=== PATIENT | male | born 1985 | race Two or more races ===

== ENCOUNTER 2025-08-10 20:21 | Emergency (ER) | payer OTHER, SELFPAY ==
[2025-08-10 20:25] VITALS: BMI 29.6
--- NOTE | 2025-08-10 20:57 | XR_ITS ---
Examination: Shoulder, left, 3 views Technique: Shoulder AP internal rotation, AP external rotation, Y view shoulder, 3 views Exam date and time : August 10674 [id number] hours INDICATIONS: Snowboarding injury today with shoulder pain FINDINGS: 14 mm AC joint separation No shoulder fracture or shoulder dislocation IMPRESSION: Prominent AC joint separation
--- NOTE | 2025-08-10 20:57 | XR_ITS ---
Examination: CT cervical spine without contrast 2-D sagittal reconstructions 2-D coronal reconstructions 3-D reconstructions. Exam date and time: August 10, 2025, 2109 hours INDICATION: Patient fell today with injury to the neck, neck pain CTDI:vol (mGy) 15.3 DLP: (mGycm) 380 Technique: Multiple 2 mm axial sections of the cervical spine have been obtained. The coronal and sagittal reconstructions have been obtained. 3-D reconstructions have been obtained. Low dose protocols were performed. One or more of the following dose reduction techniques were used; automated exposure control, adjustment of the mA and/or KV according to patient size, use of iterative reconstruction technique. Findings: Axial sections demonstrate intact base of the skull. C1 exhibit satisfactory relationship to the odontoid. No acute cervical vertebral body fracture seen. Alignment posterior spinous processes satisfactory. Impression: No acute cervical fracture.
--- NOTE | 2025-08-10 20:57 | XR_ITS ---
Examination: CT brain head without contrast. 2-D sagittal coronal reconstructions Date and time of exam: August 10, 2025, 2108 hours INDICATION: Patient fell today with injury to the head, head pain CTDI: vol (mGy): 50.1 DLP: (mGycm): 1017 Technique: Multiple CT axial sections of the brain have been obtained, 5 mm slice thickness. Contrast has not been administered. 2-D sagittal, coronal reconstructions have been obtained Low dose protocols were performed. One or more of the following dose reduction techniques were used; automated exposure control, adjustment of the mA and/or KV according to patient size, use of iterative reconstruction technique. Findings: No significant ventricular enlargement. Intra-axial or extra-axial hemorrhage density is not seen. No mass effect or midline shift Basal cisterns are not remarkable. Fourth ventricle is midline. Cranial vault intact. Impression: Negative for acute hemorrhage, mass effect or midline shift
--- NOTE | 2025-08-10 22:22 | EDNOTE_ITS ---
ED Fall Injury RME/HPI General Chief Complaint: Fall Stated Complaint: FELL,LEFT SHOULDER PAIN, HIT HEAD Time Seen by Provider: 08/10/25 20:56 Arrival date/time: 08/10/25 20:21 This is a case of 39-year-old male with no medical history came in in the emergency room due to snowboarding injury history of present illness started 1 hour prior to arrival in the emergency room patient was snowboarding and fell and hit his head on the floor no contusion no hematoma no loss of consciousness patient also complaining of left-sided neck pain and left shoulder pain no other injury noted denies any chest or abdominal injury Limitations: no limitations Related Data Previous Rx's ?Medication ?Instructions ?Recorded baclofen 10 mg tablet 10 mg PO BID PRN muscle spas m #10 08/10/25 tabs hydrocodone 5 mg-acetaminophen 325 1 tab PO Q6H PRN pa in #16 tabs 08/10/25 mg tablet Allergies Allergy/AdvReac Type Severity Reaction Status Date / Time No Known Allergies Allergy Verified 08/10/25 20:22 Review of Systems Review of Systems Systems Reviewed: All systems reviewed, normal except as documented Past Medical History Social History SMOKING STATUS: Never smoker ED Exam General Limitations: Present no limitations General appearance: Present alert, in no apparent distress and other (Patient is awake alert oriented not in distress nontoxic looking well-hydrated well- nourished) Head Head exam: Present atraumatic, normocephalic, normal inspection and other (No contusion no hematoma) Eye Eye exam: Present normal appearance, PERRL, EOMI and other (PERRL EOM intact normal conjunctiva no papilledema no hyphema) ENT ENT exam: Present normal exam, normal oropharynx, mucous membranes moist and other (HEENT exam is normal and unremarkable) Neck Neck exam: Present normal inspection, full ROM, trachea midline, tenderness (Mild tenderness on the left side of the cervical area no crepitation no deformity no redness no cellulitis no paraspinal no paravertebral tenderness no muscle spasm) and other (ROM intact neurovascular intact); Absent meningismus, lymphadenopathy or thyromegaly Chest Chest inspection: Present normal inspection and symmetric chest wall rise; Absent tenderness Respiratory Respiratory exam: Present normal lung sounds bilaterally; Absent respiratory distress, wheezes, stridor, accessory muscle use or prolonged expiratory phase Cardiovascular Cardiovascular exam: Present regular rate, normal rhythm and normal heart sounds; Absent bradycardia, tachycardia, irregular rhythm, systolic murmur or diastolic murmur Abdominal Exam Abdominal exam: Present soft and normal bowel sounds; Absent distention, tenderness, guarding, rebound, rigidity, diminished bowel sounds, hyperactive bowel sounds, hypoactive bowel sounds or organomegaly Extremities Exam Extremities exam: Present normal inspection and full ROM Expanded Upper Extremity Exam Shoulder exam: Present tenderness, swelling, tenderness over AC joint and other (Noted moderate tenderness on the left shoulder along the AC joint no crepitation no deformity no cellulitis no redness ROM limited due to pain pulses were full and equal capillary refill less than 2 seconds sensory intact); Absent abrasion, laceration, ecchymosis, deformity, crepitus, dislocation or erythema Arm exam: Present normal inspection and full ROM; Absent tenderness, swelling, abrasion, laceration, ecchymosis, deformity, crepitus or erythema Elbow exam: Present normal inspection and full ROM; Absent tenderness, swelling, abrasion, laceration, deformity, crepitus, dislocation, erythema, effusion, pain w/ pronation/supination or tenderness over radial head Back Exam Back exam: Present normal inspection and full ROM; Absent tenderness, CVA tenderness (R), CVA tenderness (L), muscle spasm, paraspinal tenderness, vertebral tenderness, rashes, sciatic notch tenderness (R), sciatic notch tenderness (L), straight leg raise (R) or straight leg raise (L) Neurological Exam Neurological exam: Present alert, oriented X3, CN II-XII intact, normal gait, reflexes normal and other (Awake alert oriented x 4 no focal deficit GCS 15/15 steady gait memory intact no slurring of speech no facial droop motor or sensory reflex were normal negative Babinski); Absent motor sensory deficit Psychiatric Psychiatric exam: Present normal affect and normal mood Skin Skin exam: Present warm, dry, intact, normal color and other (Excellent skin turgor) Course Quality Measures none Orders Category Date Time Status CT cervical spine wo con Stat Exams 08/10/25 20:[address] head/brain wo con Stat Exams 08/10/25 20:57 Completed XR shoulder LT min 2V Stat Exams 08/10/25 20:57 Completed Vital Signs Vital signs: Oxygen saturation is normal Fall MDM Narrative MDM Narrative:: This is a case of 39-year-old male with no medical history came in in the emergency room due to snowboarding injury history of present illness started 1 hour prior to arrival in the emergency room patient was snowboarding and fell and hit his head on the floor no contusion no hematoma no loss of consciousness patient also complaining of left-sided neck pain and left shoulder pain no other injury noted denies any chest or abdominal injury physical examination patient is awake alert oriented not in distress nontoxic looking well-hydrated well- nourished neurological exam is normal awake alert oriented x 4 no focal deficit GCS 15/15 steady gait memory intact no slurring speech no facial droop motor or sensory reflex were normal negative Babinski patient noted to have mild to moderate tenderness on the left side of the neck and left shoulder no crepitation no deformity no redness no swelling ROM is intact pulses were full and equal capillary refill less than 2 seconds sensory is intact sling is a pplied patient tolerated well neurovascular intact x-ray of the left shoulder noted AC separation patient CT scan of the head and neck is also normal patient sustained a head injury head injury precaution was discussed with the patient will inform that for any changes of sensorium or worsening of the symptoms headache nausea vomiting dizziness blurring of vision return to the emergency room immediately or call 911 he need also to see an orthopedic surgeon for AC separation ice pack and warm compress as needed for pain was prescribed with [place] and baclofen and he is informed not to take at the same time for any worsening symptoms or any emergent concern return precaution in the ER is advised Patient was discharged with comfortable condition walking with stable gait. Patient verbalized no further complains explained diagnosis and answered patient question. Patient is comfortable with the proposed management plan including the need to follow up with his/her primary care physician and any specialist if applicable Discussed patient for any urgent condition or worsening sx, He/She needed to go to emergency room immediately or call 911. Patient acknowledge the responsibility to follow up as instructed and to monitor her/his symptoms. For any persistence of the symptoms for more than 3-5 days return precaution advised. Discussed the result of the test and was given printed discharge instruction Patient data External records reviewed:: [facility] previous records Clinical information provided by:: patient Social determinants that could affect healthcare access:: none Patient has the following chronic illnesses:: None How is presenting disease/condition affected by chronic disease/condition?: no chronic disease Evaluation data The following diagnostics were reviewed and interpreted by me:: radiology exam(s) Lab and/or radiology exams considered but not ordered:: Reviewed Interpretation Summary: Reviewed Medications / Prescriptions Medications or Prescriptions considered but not ordered:: Given Medication administrations:: Given Consultations Consultation(s) initiated? (list below): No Diagnosis Fall Differential Diagnosis: dislocation of shoulder region, concussion with loss of consciousness and concussion without loss of consciousness Most likely diagnosis given after review of the tests above:: Head injury cervical sprain AC separation left shoulder Admission Indicated Admission indicated?: not indicated Explain why admission is indicated or not indicated:: Not indicated Admission Request Was there a request for admission?: No Admission Attestation Admission request attestation: Not indicated Disposition Plan Disposition Plan: Discharge Discharge Attestation Discharge Attestation: The patient and all family members were given an opportunity to ask questions and understood the discharge instructions. Discharge instructions specifically effects, indications for sooner follow up or return to the emergency department, and the expected course of current diagnosis. Patient condition: Stable Discharge Plan Plan Patient Disposition: HOME (Self Care) Patient condition on transfer: Stable Prescriptions/Referrals Prescriptions/Med Rec: New hydrocodone-acetaminophen 5-325 mg tablet 1 tab PO Q6H MDD max 4 tabs per day PRN (Reason: pain) Qty: 16 0RF baclofen 10 mg tablet 10 mg PO BID PRN (Reason: muscle spasm) Qty: 10 0RF Problem List Clinical Impression: Head injury, Cervical sprain, Separation of left acromioclavicular joint Patient/Caregiver Discharge Instructions Education Materials: Treatment for Shoulder Separation, ED Head Injury (Adult), ED Neck Sprain or Strain, ED Sling, ED RICE Additional Instructions: Follow-up with your primary care physician in 2 days for reevaluation and to be referred to orthopedic surgeon for further evaluation and treatment of AC joint separation left shoulder for any worsening symptoms or any emergent concerns such as headache nausea vomiting dizziness blurring of vision numbness weakness tingling sensation memory loss unsteady gait return to the emergency room immediately or call 911 take your medication as directed ice pack and warm compress as needed for pain keep the sling in place until cleared by your primary care physician Print Language: Croatian Stand Alone Forms: Winnie Award Info., Patient Portal Info Letter ENRICO/ALLEY Supervising Physician ENRICO/ALLEY Supervising Physician: Dr. Sky
== END 2025-08-10 22:37 | disposition home or self-care (01) ==
PROVIDERS: Emergency Provider Emergency Medicine
DX: S43.102A Unspecified dislocation of left acromioclavicular joint, initial encounter (principal); S13.4XXA Sprain of ligaments of cervical spine, initial encounter; S09.90XA Unspecified injury of head, initial encounter; S19.9XXA Unspecified injury of neck, initial encounter; V00.311A Fall from snowboard, initial encounter; Y93.23 Activity, snow (alpine) (downhill) skiing, snowboarding, sledding, tobogganing and snow tubing
CPT/HCPCS: 70450; 72125; 73030; 99282; A4565